=== PATIENT | female | born 1985 | race Caucasian/White ===

== ENCOUNTER 2017-04-23 00:35 | Emergency (ER) | payer MEDICAID, OTHER ==
[~2017-04-23] VITALS: Ht 160 cm; Wt 70.0 kg
[~2017-04-23 00:35] MED LIST: PREN1TAB49 PO
[2017-04-23 00:51] VITALS: Ht 160 cm; Wt 70.0 kg
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
[2017-04-23 01:23] LABS: URINE BLOOD (Dip) POC Negative (NEGATIVE)
[2017-04-23] MEDS ORDERED: ACETAMINOPHEN 325 MG TAB PO ONE (01:30)
[2017-04-23] MEDS ORDERED: ACET500C5 PO (01:35)
[2017-04-23] MEDS ORDERED: DIAZ-90 PO (01:35)
[2017-04-23 01:53] VITALS: BP 128/81; PULSE 66; RESP 16; TEMP 98.7
== END 2017-04-23 03:07 | disposition home or self-care (01) ==
LOC: FTE 00:35 → E/R 03:07
DX: S20.229A Contusion of unspecified back wall of thorax, initial encounter (principal); W18.39XA Other fall on same level, initial encounter; Y92.9 Unspecified place or not applicable
CPT/HCPCS: 81003; 99283